=== PATIENT | female | born 1995 | race American Indian/Alaskan Native ===

== ENCOUNTER 2018-09-15 23:08 | Emergency (ER) | payer OTHER ==
[2018-09-16 00:24] VITALS: BP 141/93
[2018-09-16 01:02] LABS: Basophils % (Auto) 0.5 % (0.0-1.8); Eosinophils % (Auto) 0.5 % (0.0-4.3); Hematocrit 37.4 % (30.3-42.9); Hemoglobin 12.7 gm/dl (10.1-14.3); Lymphocytes % (Auto) 12.1 % (13.4-35.0); Mean Corpuscular HGB Conc 34 % (30-34); Mean Corpuscular Volume 87 fl (79-97); Monocytes # (Auto) 0.7 K/mm3 (0.0-0.8); Monocytes % (Auto) 8.4 % (0.0-7.3); Platelet Count 198 K/mm3 (140-440); Red Blood Count 4.31 M/mm3 (3.65-5.03); Red Cell Distribution Width 13.7 % (13.2-15.2)
[2018-09-16] MEDS ORDERED: ZOFRAN ODT PO ONE (01:38)
[2018-09-16] MEDS ORDERED: PEPCID PO ONE (01:38)
[2018-09-16 01:39] LABS: Alanine Aminotransferase 37 units/L (7-56); Albumin 4.6 g/dL (3.9-5); BUN/Creatinine Ratio 13; Blood Urea Nitrogen 8 mg/dL (7-17); Calcium 8.9 mg/dL (8.4-10.2); Hemolysis Index 9
[2018-09-16 01:56] LABS: Bilirubin,Direct < 0.2 mg/dL (0-0.2)
--- NOTE | 2018-09-16 02:14 | Ultrasound Report ---
ULTRASOUND ABDOMEN, LIMITED (RIGHT UPPER QUADRANT) INDICATION: RUQ, Epigastric pain. COMPARISON: None available. FINDINGS: Pancreas: Visualized portion shows no significant abnormality. Liver: Normal. Gallbladder: Normal. Bile ducts: Normal. Common Bile Duct measures 3 mm. Free fluid: None. Additional Findings: None. IMPRESSION: 1. No sonographic abnormality of the right upper quadrant. Signer Name: Erasto Charles MD Signed: 09/16/2018 2:09 AM Workstation Name: [facility]
[2018-09-16 02:21] LABS: Bilirubin,Urine NEG (Negative); Blood,Urine SM (Negative); Color,Urine Yellow (Yellow); Mucus,Urine FEW /HPF; Protein,Urine <15 mg/dL mg/dL (Negative)
[2018-09-16 02:24] LABS: HCG Qualitative,Urine Negative (Negative)
--- NOTE | 2018-09-16 02:51 | Emergency Department Report ---
ED Abdominal Pain HPI - General Chief Complaint: Abdominal Pain Stated Complaint: ABD PAIN/BACKPAIN Time Seen by Provider: 09/16/18 01:25 Source: patient, EMS Mode of arrival: Ambulatory Limitations: No Limitations - History of Present Illness Initial Comments: Patient is a A0 23-year-old -[place] female with no past medical history except chronic migraine headaches who presents to the ED with complaint of acute onset persistent severe epigastric pain with nausea and vomiting for the last 3 hours. Patient states that she took ibuprofen 800 mg tablet when necessary and started having severe epigastric pain with intractable nausea and vomiting. Patient states that the pain has been persistent until after she got into the ED with a pen somehow resolved. Patient denies dizziness, fever, chills, cough, chest pain, shortness of breath, hematemesis, hematochezia, dysuria, urinary frequency and urgency, sore throat, headache or palpitations and change in vision. MD Complaint: abdominal pain, other (nausea and vomiting) -: Sudden, hour(s) (3) Location: RUQ, epigastric Radiation: RUQ, epigastric Migration to: no migration Severity: severe Severity scale (0 -10): 7 Quality: cramping, aching, sharp Consistency: constant, now resolved Improves With: nothing Worsens With: nothing Associated Symptoms: denies other symptoms, nausea, vomiting. denies: diarrhea, fever, chills, constipation, dysuria, hematemesis, hematochezia, melena, hematuria, anorexia, syncope Treatments Prior to Arrival: NSAIDs - Related Data LMP Date: 09/05/18 Previous Rx's Medication Instructions Recorded Last Taken Type Dicyclomine [Bentyl] 20 mg PO Q6H PRN #20 tablet 09/16/18 Unknown Rx Ondansetron [Zofran Odt] 4 mg PO Q6HR PRN #15 tab.rapdis 09/16/18 Unknown Rx Ranitidine HCl [Zantac] 150 mg PO Q12H #30 tablet 09/16/18 Unknown Rx Allergies Allergy/AdvReac Type Severity Reaction Status Date / Time No Known Allergies Allergy Unverified 09/16/18 00:25 ED Review of Systems ROS: Stated complaint: ABD PAIN/BACKPAIN Other details as noted in HPI Constitutional: denies: chills, fever Eyes: denies: eye pain, eye discharge, vision change ENT: denies: ear pain, throat pain Respiratory: denies: cough, shortness of breath, wheezing Cardiovascular: denies: chest pain, palpitations Endocrine: no symptoms reported Gastrointestinal: abdominal pain, nausea, vomiting. denies: diarrhea Genitourinary: denies: urgency, dysuria, discharge Musculoskeletal: denies: back pain, joint swelling, arthralgia Skin: denies: rash, lesions Neurological: denies: headache, weakness, paresthesias Psychiatric: denies: anxiety, depression Hematological/Lymphatic: denies: easy bleeding, easy bruising ED Past Medical Hx - Past Medical History Additional medical history: scoliosis. h/o hemorrhage - Surgical History Past Surgical History?: Yes Additional Surgical History: x2 - Social History Smoking Status: Never Smoker Substance Use Type: None - Medications Home Medications: Home Medications Medication Instructions Recorded Confirmed Last Taken Type Dicyclomine [Bentyl] 20 mg PO Q6H PRN #20 tablet 09/16/18 Unknown Rx Ondansetron [Zofran Odt] 4 mg PO Q6HR PRN #15 tab.rapdis 09/16/18 Unknown Rx Ranitidine HCl [Zantac] 150 mg PO Q12H #30 tablet 09/16/18 Unknown Rx ED Physical Exam - General Limitations: No Limitations General appearance: alert, in no apparent distress - Head Head exam: Present: atraumatic, normocephalic, normal inspection - Eye Eye exam: Present: normal appearance, PERRL, EOMI - ENT ENT exam: Present: normal exam, normal orophraynx, mucous membranes moist, TM's normal bilaterally, normal external ear exam - Neck Neck exam: Present: normal inspection, full ROM - Respiratory Respiratory exam: Present: normal lung sounds bilaterally. Absent: respiratory distress, wheezes, rales, rhonchi, chest wall tenderness, accessory muscle use, prolonged expiratory - Cardiovascular Cardiovascular Exam: Present: regular rate, normal rhythm. Absent: systolic murmur, diastolic murmur, rubs, gallop - GI/Abdominal GI/Abdominal exam: Present: soft, normal bowel sounds. Absent: tenderness, guarding, rebound, hyperactive bowel sounds, hypoactive bowel sounds - Rectal Rectal exam: Present: deferred - Extremities Exam Extremities exam: Present: normal inspection, full ROM, normal capillary refill - Back Exam Back exam: Present: normal inspection, full ROM. Absent: tenderness, CVA ten derness (R), CVA tenderness (L), muscle spasm, paraspinal tenderness - Neurological Exam Neurological exam: Present: alert, oriented X3, CN II-XII intact, normal gait, reflexes normal - Psychiatric Psychiatric exam: Present: normal affect, normal mood - Skin Skin exam: Present: warm, dry, intact, normal color. Absent: rash ED Course Vital Signs 09/16/18 00:17 Temperature 97.8 F Pulse Rate 81 Respiratory 18 Rate Blood Pressure 141/93 O2 Sat by Pulse 99 Oximetry - Reevaluation(s) Reevaluation #1: 09/16/18 03:05 Patient is alert and oriented 3 and is not in any distress with normal vital signs. Lab test results were reviewed and are unremarkable except for mildly elevated AST levels to 67. Urinalysis is unremarkable and gallbladder ultrasound shows no gallstones, no gallbladder wall thickness is normal and common bile duct is also minimal in size. There is no pericholecystic fluid. On reevaluation, patient's pain is well controlled and patient has not had any nausea and vomiting in the ED. Patient was discharged home on antacids, antiemetics as well as pain medication, and advised to follow-up with her primary care physician in 5-7 days for reevaluation or return to the ED immediately if symptoms get worse. ED Medical Decision Making - Lab Data Result diagrams: 09/16/18 00:39 09/16/18 00:41 - Radiology Data Radiology results: report reviewed, image reviewed Gallbladder US: Normal gallbladder with normal gallbladder wall thickness; No pe richolecystic fluids and no gallstones - Medical Decision Making Patient is alert and oriented 3 and is not in any distress with normal vital signs. Lab test results were reviewed and are unremarkable except for mildly elevated AST levels to 67. Urinalysis is unremarkable and gallbladder ultrasound shows no gallstones, no gallbladder wall thickness is normal and comm on bile duct is also minimal in size. There is no pericholecystic fluid. On reevaluation, patient's pain is well controlled and patient has not had any nausea and vomiting in the ED. Patient was discharged home on antacids, antiemetics as well as pain medication, and advised to follow-up with her primary care physician in 5-7 days for reevaluation or return to the ED immediately if symptoms get worse. - Differential Diagnosis acute gastritis; GERD; Gallstones; Nausea and vomiting Critical care attestation.: If time is entered above; I have spent that time in minutes in the direct care of this critically ill patient, excluding procedure time. ED Disposition Clinical Impression: Acute epigastric pain, Nausea and vomiting in adult Acute gastritis without bleeding Qualifiers: Gastritis type: unspecified gastritis Qualified Code(s): K29.00 - Acute gastritis without bleeding Disposition: TO HOME OR SELFCARE Is pt being admited?: No Does the pt Need Aspirin: No Condition: Stable Instructions: Gastritis (ED), Gastroesophageal Reflux Disease (ED), Acute Nausea and Vomiting (ED), Abdominal Pain (ED) Additional Instructions: Take medications as needed for pain and antacids, with food. Drink plenty of fluids and follow-up with her primary care physician in 3-5 days for reevaluation. Return to the ED immediately if symptoms get worse. Prescriptions: Dicyclomine [Bentyl] 20 mg PO Q6H PRN #20 tablet PRN Reason: Pain , Severe (7-10) Ranitidine HCl [Zantac] 150 mg PO Q12H #30 tablet Ondansetron [Zofran Odt] 4 mg PO Q6HR PRN #15 tab.rapdis PRN Reason: Nausea Referrals: TICO PERALTA [Other] - 3-5 Days Time of Disposition: 02:49 Print Language: CZECH
== END 2018-09-16 03:25 | disposition home or self-care (01) ==
LOC: ED 23:08
DX: K29.00 Acute gastritis without bleeding (principal); R11.2 Nausea with vomiting, unspecified; G43.709 Chronic migraine without aura, not intractable, without status migrainosus; Z79.1 Long term (current) use of non-steroidal anti-inflammatories (NSAID)
CPT/HCPCS: 36415; 76705; 80048; 80076; 81001; 81025; 83690; 85025; 99284; Q0162